=== PATIENT | female | born 1980 | race Caucasian/White ===

== ENCOUNTER 2016-06-15 15:44 | Emergency (ER) | payer MEDICAID ==
[~2016-06-15] VITALS: Ht 160 cm; Wt 63.6 kg
[~2016-06-15 15:44] MED LIST: ACET-66 PO
[2016-06-15 16:34] LABS: BASOPHILS % (AUTO) 0.3 % (0.0-2.0); EOSINOPHILS % (AUTO) 2.1 % (1.0-6.0); HEMATOCRIT 43.4 % (36-46); HEMOGLOBIN 14.3 g/dL (12.0-16.0); LYMPHOCYTES # (AUTO) 2.2 K/uL (1.0-4.8); LYMPHOCYTES % (AUTO) 23.6 % (22.0-44.0); MEAN CORPUSCULAR HEMOGLOBIN 30.3 pg (26.0-34.0); MEAN CORPUSCULAR HGB CONC 32.9 G/dL (31.0-37.0); MEAN CORPUSCULAR VOLUME 92 fL (80-100); MONOCYTES # (AUTO) 0.2 K/uL (0.1-1.0); MONOCYTES % (AUTO) 2.1 % (2.0-9.0); NEUTROPHILS # (AUTO) 6.8 K/uL (1.8-7.7); NEUTROPHILS % (AUTO) 71.9 % (40.0-70.0); PLATELET COUNT (AUTO) 305 K/uL (150-450); RED BLOOD CELL COUNT(AUTO) 4.72 MIL/uL (4.00-5.20); RED CELL DISTRIBUTION WIDTH 13.9 % (11.5-14.5); WHITE BLOOD COUNT (AUTO) 9.4 K/uL (4.5-11.0)
[2016-06-15 16:44] LABS: ANION GAP 11 mmol/L (8-16); CALCIUM, TOTAL 8.9 mg/dL (8.8-10.5); CARBON DIOXIDE 26 mmol/L (22-29); CHLORIDE 106 mmol/L (98-107); CREATININE 0.78 mg/dL (0.60-1.30); GLOMERULAR FILTR. RATE CALC > 60 mL/min (>60); POTASSIUM 3.8 mmol/L (3.5-5.1); SODIUM SERUM 143 mmol/L (136-145); UREA NITROGEN, BLOOD 16 mg/dL (7-18)
[2016-06-15 17:03] LABS: ALANINE AMINOTRANSFERASE 19 U/L (12-78); ASPARTATE AMINOTRANSFERASE 14 U/L (15-37); BILIRUBIN,TOTAL 0.3 mg/dL (0.1-1.0); TOTAL PROTEIN, SERUM 8.4 g/dL (6.4-8.2)
[2016-06-15] MEDS ORDERED: MORPHINE SULFATE 4 MG/ML SYRINGE IVP ONE (17:30)
[2016-06-15] MEDS ORDERED: SODIUM CHLORIDE 0.9% 1,000 ML IV ONE (17:30)
[2016-06-15] MEDS ORDERED: ONDANSETRON HCL 4 MG/2 ML VIAL IVP ONE (17:30)
[2016-06-15 20:41] LABS: APPEARANCE,URINE CLOUDY (CLEAR); GLUCOSE, URINE (UA) NEGATIVE (NEGATIVE); KETONES,URINE 40 mg/dL (NEGATIVE); LEUKOCYTE ESTERASE ,URINE SMALL (NEGATIVE); OCCULT BLOOD,URINE LARGE (NEGATIVE); PROTEIN,URINE SEE CONFIRM (NEGATIVE)
[2016-06-15 20:58] LABS: ADD UA MICROSCOPIC YES
[2016-06-15 21:05] LABS: SULFOSALICYLIC ACID,URINE 3+ (Negative)
[2016-06-15 21:08] LABS: RBC,URINE Full Field /HPF (0-2)
[2016-06-15 22:24] VITALS: BP 124/88
== END 2016-06-15 22:27 | disposition home or self-care (01) ==
LOC: EMS 15:47
DX: N39.0 Urinary tract infection, site not specified (principal); N94.6 Dysmenorrhea, unspecified; F15.90 Other stimulant use, unspecified, uncomplicated; J45.909 Unspecified asthma, uncomplicated
CPT/HCPCS: 36415; 74176; 76856; 80053; 80307; 81001; 81002; 83690; 84703; 85025; 87086; 96361; 96374; 96375; 99285; J2270; J2405; J7030

== ENCOUNTER 2020-08-13 00:40 | Emergency (ER) | payer MEDICAID ==
[~2020-08-13] VITALS: Ht 160 cm; Wt 75.0 kg
[2020-08-13] MEDS ORDERED: DEXAMETHASONE SOD PHOS 4 MG/ML 5 ML VIAL IM ONE (01:45)
[2020-08-13] MEDS ORDERED: ACETAMINOPHEN 500 MG TABLET PO ONE (01:45)
[2020-08-13] MEDS ORDERED: KETOROLAC TROMETHAMINE 30 MG/ML VIAL IM ONE (01:45)
[2020-08-13 02:15] LABS: COVID AG,FIA SOURCE NASOPHARYNGEAL
[2020-08-13 02:18] VITALS: BP 132/99
[2020-08-13 02:37] LABS: RAPID GROUP A STREP NEGATIVE (NEGATIVE)
[2020-08-13] MEDS ORDERED: PENICILLIN G BENZATHINE LA 1,200,000 UNITS/2 ML SYRINGE IM ONE (03:00)
[2020-08-13] MEDS ORDERED: ALBUTEROL SULFATE HFA 90 MCG/PUFF 8 GM INHALER IH ONE (03:15)
== END 2020-08-13 03:28 | disposition home or self-care (01) ==
LOC: EMS 00:47
DX: J02.9 Acute pharyngitis, unspecified (principal); Z20.822 Contact with and (suspected) exposure to COVID-19; J45.909 Unspecified asthma, uncomplicated; Z90.49 Acquired absence of other specified parts of digestive tract
CPT/HCPCS: 87426; 87430; 94640; 96372; 99284; J0561; J1100; J1885; J3535

== ENCOUNTER 2020-10-07 20:36 | Emergency (ER) | payer MEDICAID ==
[~2020-10-07] VITALS: Ht 160 cm; Wt 68.2 kg
[2020-10-07 22:51] VITALS: BP 140/80
== END 2020-10-07 22:55 | disposition home or self-care (01) ==
LOC: EMS 20:38
DX: S50.861A Insect bite (nonvenomous) of right forearm, initial encounter (principal); L03.114 Cellulitis of left upper limb; J45.909 Unspecified asthma, uncomplicated; Z79.899 Other long term (current) drug therapy; W57.XXXA Bitten or stung by nonvenomous insect and other nonvenomous arthropods, initial encounter; Y93.89 Activity, other specified; Y92.89 Other specified places as the place of occurrence of the external cause; Y99.8 Other external cause status
CPT/HCPCS: 99283; Z7502

== ENCOUNTER 2021-04-17 20:28 | Emergency (ER) | payer MEDICAID ==
[~2021-04-17] VITALS: Ht 160 cm; Wt 63.6 kg
[2021-04-17 20:33] VITALS: BP 142/93
[2021-04-18] MEDS ORDERED: CIPR250S4 PO (00:43)
[2021-04-18] MEDS ORDERED: NEOM10SO14 AD (00:43)
[2021-04-18] MEDS ORDERED: NEOMYCIN/POLYMYXIN B/HYDROCORT 10 ML OTIC SOLUTION AD ONE (00:45)
[2021-04-18] MEDS ORDERED: IBUPROFEN 600 MG TABLET PO ONE (00:45)
[2021-04-18] MEDS ORDERED: CIPROFLOXACIN HCL 250 MG TABLET PO ONE (00:45)
== END 2021-04-18 00:52 | disposition home or self-care (01) ==
LOC: EMS 20:30
DX: H60.91 Unspecified otitis externa, right ear (principal); J45.909 Unspecified asthma, uncomplicated; Z90.89 Acquired absence of other organs
CPT/HCPCS: 99284; Z7502; Z7610

== ENCOUNTER 2021-05-18 17:47 | Emergency (ER) | payer MEDICAID ==
[~2021-05-18] VITALS: Ht 157.5 cm; Wt 65.9 kg
[~2021-05-18 17:47] MED LIST changes: +CIPR250S4 PO; +NEOM10SO14 AD
[2021-05-18 17:53] VITALS: BP 148/72
[2021-05-18] MEDS ORDERED: CLOT15CR29 TP (18:11)
== END 2021-05-18 18:39 | disposition home or self-care (01) ==
LOC: EMS 17:50
DX: B35.3 Tinea pedis (principal); J45.909 Unspecified asthma, uncomplicated; Z90.89 Acquired absence of other organs
CPT/HCPCS: 99283

== ENCOUNTER 2021-06-04 17:14 | Emergency (ER) | payer MEDICAID ==
[~2021-06-04] VITALS: Ht 160 cm; Wt 69.5 kg
[~2021-06-04 17:14] MED LIST changes: +CLOT15CR29 TP
[2021-06-04] MEDS ORDERED: KETOROLAC TROMETHAMINE 30 MG/ML VIAL IVP ONE (19:15)
[2021-06-04] MEDS ORDERED: ACETAMINOPHEN 500 MG TABLET PO ONE (19:15)
[2021-06-04] MEDS ORDERED: VANCOMYCIN HCL 1 GM/D5% WATER 200 ML IV ONE (19:15)
[2021-06-04 19:44] LABS: BASOPHILS % (AUTO) 0.7 % (0.0-2.0); EOSINOPHILS % (AUTO) 2.3 % (1.0-6.0); HEMOGLOBIN 14.2 g/dL (12.0-16.0); LYMPHOCYTES # (AUTO) 1.8 K/uL (1.0-4.8); LYMPHOCYTES % (AUTO) 20.2 % (22.0-44.0); MEAN CORPUSCULAR HEMOGLOBIN 31.4 pg (26.0-34.0); MEAN CORPUSCULAR HGB CONC 33.9 G/dL (31.0-37.0); MEAN CORPUSCULAR VOLUME 93 fL (80-100); MONOCYTES # (AUTO) 0.3 K/uL (0.1-1.0); MONOCYTES % (AUTO) 3.7 % (2.0-9.0); NEUTROPHILS # (AUTO) 6.4 K/uL (1.8-7.7); NEUTROPHILS % (AUTO) 73.1 % (40.0-70.0); PLATELET COUNT (AUTO) 306 K/uL (150-450); RED BLOOD CELL COUNT(AUTO) 4.53 MIL/uL (4.00-5.20); RED CELL DISTRIBUTION WIDTH 13.1 % (11.5-14.5)
[2021-06-04] MEDS ORDERED: DOXYCYCLINE HYCLATE 100 MG TABLET PO ONE (19:45)
[2021-06-04] MEDS ORDERED: CefTRIAXone SODIUM 1 GM/VIAL IM ONE (19:45)
[2021-06-04] MEDS ORDERED: LIDOCAINE/PF 1% 2 ML VIAL IM ONE (19:45)
[2021-06-04 19:53] LABS: ANION GAP 14 mmol/L (8-16); CARBON DIOXIDE 22 mmol/L (22-29); CHLORIDE 103 mmol/L (98-107); CREATININE 0.63 mg/dL (0.60-1.30); GLOMERULAR FILTR. RATE CALC > 60 mL/min (>60); GLUCOSE,RANDOM 70 mg/dL (70-110); POTASSIUM 3.7 mmol/L (3.5-5.1); SODIUM SERUM 139 mmol/L (136-145); UREA NITROGEN, BLOOD 17 mg/dL (7-18)
[2021-06-04] MEDS ORDERED: KETOROLAC TROMETHAMINE 60 MG/2 ML VIAL IM ONE (20:00)
[2021-06-04 20:02] LABS: LACTIC ACID 1.5 mmol/L (0.4-2.0)
[2021-06-04 20:09] LABS: ALANINE AMINOTRANSFERASE 21 U/L (12-78); ALBUMIN 3.9 g/dL (3.4-5.0); ALKALINE PHOSPHATASE 67 U/L (46-116); ASPARTATE AMINOTRANSFERASE 14 U/L (15-37); BILIRUBIN,TOTAL 0.2 mg/dL (0.1-1.0); TOTAL PROTEIN, SERUM 8.7 g/dL (6.4-8.2)
[2021-06-04] MEDS ORDERED: BACI28OI28 TP (20:37)
[2021-06-04] MEDS ORDERED: DOXY-354 PO (20:37)
[2021-06-04] MEDS ORDERED: CEPH500C3 PO (20:37)
[2021-06-04] MEDS ORDERED: IBUP-1554 PO (20:37)
[2021-06-04 20:53] VITALS: BP 129/76
== END 2021-06-04 21:44 | disposition home or self-care (01) ==
LOC: EMS 17:14
DX: L03.115 Cellulitis of right lower limb (principal); Z79.899 Other long term (current) drug therapy
CPT/HCPCS: 36415; 80053; 83605; 84703; 85025; 87070; 87205; 96372; 99284; J0696; J1885; J3490; J3370

== ENCOUNTER 2022-06-15 21:54 | Emergency (ER) | payer MEDICAID ==
[~2022-06-15] VITALS: Ht 160 cm; Wt 75.0 kg
[~2022-06-15 21:54] MED LIST changes: +BACI28OI28 TP; +CEPH-558 PO; +CIPR-278 PO; -CIPR250S4 PO; +DOXY-354 PO; +IBUP-1554 PO
[2022-06-15 23:30] VITALS: BP 141/78
[2022-06-15] MEDS ORDERED: ALBUTEROL SULFATE HFA 90 MCG/PUFF 8 GM INHALER IH ONE (23:45)
== END 2022-06-16 01:06 | disposition home or self-care (01) ==
LOC: EMS 21:56
DX: Z76.0 Encounter for issue of repeat prescription (principal); Z90.49 Acquired absence of other specified parts of digestive tract; Z98.890 Other specified postprocedural states
CPT/HCPCS: 99283; 94640; J3535

== ENCOUNTER 2022-07-10 00:19 | Emergency (ER) | payer MEDICAID ==
[~2022-07-10] VITALS: Ht 160 cm; Wt 75.0 kg
[2022-07-10] MEDS ORDERED: SODIUM CHLORIDE 0.9% 1,000 ML IV ONE (00:45)
[2022-07-10] MEDS ORDERED: KETOROLAC TROMETHAMINE 30 MG/ML VIAL IVP ONE (00:45)
[2022-07-10] MEDS ORDERED: MORPHINE SULFATE 2 MG/ML SYRINGE IVP ONE ×2 (00:45→04:30)
[2022-07-10] MEDS ORDERED: ONDANSETRON HCL 4 MG/2 ML VIAL IVP ONE (00:45)
[2022-07-10 01:13] LABS: BASOPHILS % (AUTO) 1.3 % (0.0-2.0); EOSINOPHILS % (AUTO) 2.8 % (1.0-6.0); HEMOGLOBIN 13.8 g/dL (12.0-16.0); LYMPHOCYTES # (AUTO) 3.8 K/uL (1.0-4.8); LYMPHOCYTES % (AUTO) 39.8 % (22.0-44.0); MEAN CORPUSCULAR HEMOGLOBIN 31.6 pg (26.0-34.0); MEAN CORPUSCULAR HGB CONC 33.7 G/dL (31.0-37.0); MEAN CORPUSCULAR VOLUME 94 fL (80-100); MONOCYTES # (AUTO) 0.6 K/uL (0.1-1.0); MONOCYTES % (AUTO) 6.8 % (2.0-9.0); NEUTROPHILS # (AUTO) 4.7 K/uL (1.8-7.7); NEUTROPHILS % (AUTO) 49.3 % (40.0-70.0); PLATELET COUNT (AUTO) 257 K/uL (150-450); RED BLOOD CELL COUNT(AUTO) 4.37 MIL/uL (4.00-5.20)
[2022-07-10 01:15] LABS: APPEARANCE,URINE CLEAR (CLEAR); BILIRUBIN,URINE NEGATIVE (NEGATIVE); GLUCOSE, URINE (UA) NEGATIVE (NEGATIVE); KETONES,URINE NEGATIVE (NEGATIVE); LEUKOCYTE ESTERASE ,URINE NEGATIVE (NEGATIVE); NITRATE,URINE NEGATIVE (NEGATIVE); OCCULT BLOOD,URINE NEGATIVE (NEGATIVE); PH,URINE 7.5 (5.0-8.0); PROTEIN,URINE NEGATIVE (NEGATIVE); SPECIFIC GRAVITIY, URINE 1.013 (1.003-1.030); UROBILINOGEN,URINE <=1.0 mg/dL (<=1.0)
[2022-07-10 01:24] LABS: ANION GAP 7 mmol/L (8-16); CALCIUM, TOTAL 9.6 mg/dL (8.8-10.5); CARBON DIOXIDE 28 mmol/L (22-29); CHLORIDE 104 mmol/L (98-107); CREATININE 0.69 mg/dL (0.60-1.30); GLOMERULAR FILTR. RATE CALC > 60 mL/min (>60); GLUCOSE,RANDOM 106 mg/dL (70-110); POTASSIUM 3.6 mmol/L (3.5-5.1); SODIUM SERUM 139 mmol/L (136-145); UREA NITROGEN, BLOOD 14 mg/dL (7-18)
[2022-07-10 01:36] LABS: ALANINE AMINOTRANSFERASE 22 U/L (12-78); ALBUMIN 3.9 g/dL (3.4-5.0); ALKALINE PHOSPHATASE 49 U/L (46-116); ASPARTATE AMINOTRANSFERASE 12 U/L (15-37); BILIRUBIN,TOTAL 0.2 mg/dL (0.1-1.0); HCG,QUANTITATIVE < 1 mIU/mL (0-6); LIPASE 308 U/L (73-393); TOTAL PROTEIN, SERUM 7.6 g/dL (6.4-8.2)
[2022-07-10] MEDS ORDERED: KETOROLAC TROMETHAMINE 30 MG/ML VIAL IM ONE (03:00)
[2022-07-10] MEDS ORDERED: ONDANSETRON HCL 4 MG TABLET PO ONE (03:00)
[2022-07-10] MEDS ORDERED: METOCLOPRAMIDE HCL 5 MG/ML 2 ML VIAL IVP ONE (04:30)
[2022-07-10] MEDS ORDERED: DiphenhydrAMINE HCL 50 MG/ML VIAL IVP ONE (04:30)
[2022-07-10 05:28] LABS: AMPHET/METH SCREEN,URINE NEGATIVE (NEGATIVE); BARBITURATE SCREEN, URINE NEGATIVE (NEGATIVE); BENZODIAZEPINES SCREEN,URINE NEGATIVE (NEGATIVE); CANNABINOID SCREEN,URINE NEGATIVE (NEGATIVE); COCAINE SCREEN,URINE NEGATIVE (NEGATIVE); METHADONE SCREEN, URINE NEGATIVE (NEGATIVE); OPIATE SCREEN,URINE NEGATIVE (NEGATIVE); PHENCYCLIDINE SCREEN,URINE NEGATIVE (NEGATIVE)
[2022-07-10] MEDS ORDERED: IOHEXOL 350 MG/ML 100 ML VIAL ONE (07:18)
[2022-07-10] MEDS ORDERED: SODIUM CHLORIDE 0.9% 100 ML ONE (07:18)
[2022-07-10] MEDS ORDERED: HYDROmorphone HCL 2 MG/ML SYRINGE IVP ONE (08:15)
[2022-07-10] MEDS ORDERED: GADOTERATE MEGLUMINE 10 MMOL/20 ML VIAL IVP ONE (09:00)
[2022-07-10] MEDS ORDERED: POLY238P PO (13:51)
[2022-07-10] MEDS ORDERED: ACET-2080 PO (13:51)
[2022-07-10 14:12] VITALS: BP 114/80
== END 2022-07-10 15:03 | disposition home or self-care (01) ==
LOC: EMS 00:21
DX: R19.09 Other intra-abdominal and pelvic swelling, mass and lump (principal); Z90.49 Acquired absence of other specified parts of digestive tract; Z98.890 Other specified postprocedural states
CPT/HCPCS: 72197; 99285; 74177; 96374; 96375; 96361; 80053; 81003; 83690; 84702; 85025; 36415; 74183; 76817; 96376; 80307 ×2; J1200; A9575; J1170; J1885; J2765; J2270; Q0162; Q9967; J7030; J7050

== ENCOUNTER 2023-03-12 00:56 | Emergency (ER) | payer MEDICAID ==
[~2023-03-12] VITALS: Ht 160 cm; Wt 63.6 kg
[~2023-03-12 00:56] MED LIST changes: +ACET-2080 PO; +POLY238P PO
[2023-03-12 01:02] VITALS: TEMP 98.8
[2023-03-12] MEDS ORDERED: KETOROLAC TROMETHAMINE 30 MG/ML VIAL IM ONE (02:15)
[2023-03-12] MEDS ORDERED: HYDROCODONE/ACETAMINOPHEN 5-325 MG TABLET PO ONE (02:15)
[2023-03-12] MEDS ORDERED: AMOX1TAB16 PO (02:20)
[2023-03-12] MEDS ORDERED: TRAM-559 PO (02:21)
[2023-03-12 02:30] VITALS: BP 154/98; PULSE 78; RESP 19
[2023-03-12] MEDS ORDERED: AMOX TR/POT CLAV 875 MG/125 MG TABLET PO ONE (02:30)
== END 2023-03-12 02:55 | disposition home or self-care (01) ==
LOC: EMS 00:56
DX: K02.9 Dental caries, unspecified (principal); J45.909 Unspecified asthma, uncomplicated; F17.210 Nicotine dependence, cigarettes, uncomplicated; F12.90 Cannabis use, unspecified, uncomplicated; Z90.49 Acquired absence of other specified parts of digestive tract; Z98.890 Other specified postprocedural states
CPT/HCPCS: 99283; 96372; J1885

== ENCOUNTER 2023-05-11 11:49 | Emergency (ER) | payer MEDICAID ==
[~2023-05-11] VITALS: Ht 160 cm; Wt 63.6 kg
[~2023-05-11 11:49] MED LIST changes: +AMOX1TAB16 PO; +TRAM-559 PO
[2023-05-11 12:03] VITALS: TEMP 98.6
[2023-05-11 12:10] LABS: COVID AG,FIA SOURCE NASAL SWAB
[2023-05-11] MEDS ORDERED: ALBU18HF12 IH ×2 (12:11→14:55)
[2023-05-11 12:34] LABS: INFLUENZA TYPE A NEGATIVE FOR TYPE A (NEGATIVE); INFLUENZA TYPE B NEGATIVE FOR TYPE B (NEGATIVE); SARS-COV2 (COVID) ANTIGEN,FIA Negative (Negative)
[2023-05-11] MEDS ORDERED: BENZ-227 PO (14:55)
[2023-05-11] MEDS ORDERED: PRED-554 PO (14:55)
[2023-05-11 15:02] VITALS: BP 130/85; PULSE 90; RESP 16
== END 2023-05-11 15:03 | disposition home or self-care (01) ==
LOC: EMS 11:51
DX: J06.9 Acute upper respiratory infection, unspecified (principal); J45.909 Unspecified asthma, uncomplicated; F17.210 Nicotine dependence, cigarettes, uncomplicated; F12.90 Cannabis use, unspecified, uncomplicated; Z90.49 Acquired absence of other specified parts of digestive tract; Z98.890 Other specified postprocedural states; Z20.822 Contact with and (suspected) exposure to COVID-19
CPT/HCPCS: 87804; 99283

== ENCOUNTER 2023-07-27 00:20 | Emergency (ER) | payer MEDICAID ==
[~2023-07-27] VITALS: Ht 160 cm; Wt 65.0 kg
[~2023-07-27 00:20] MED LIST changes: -ACET-2080 PO; -ACET-66 PO; +ALBU18HF12 IH; -AMOX1TAB16 PO; -BACI28OI28 TP; +BENZ-227 PO; -CEPH-558 PO; -CIPR-278 PO; -CLOT15CR29 TP; -DOXY-354 PO; -IBUP-1554 PO; -NEOM10SO14 AD; -POLY238P PO; +PRED-554 PO; -TRAM-559 PO
[2023-07-27] MEDS ORDERED: AMOX500C2 PO (01:03)
[2023-07-27] MEDS ORDERED: IBUP-1493 PO (01:03)
[2023-07-27] MEDS: CefTRIAXone SODIUM 1 GM/VIAL IM ONE (01:10)
[2023-07-27] MEDS: KETOROLAC TROMETHAMINE 30 MG/ML VIAL IM ONE (01:10)
[2023-07-27] MEDS: LIDOCAINE/PF 1% 2 ML VIAL IM ONE (01:11)
[2023-07-27 01:14] VITALS: BP 148/69; PULSE 89; RESP 17; TEMP 98.6
== END 2023-07-27 01:21 | disposition home or self-care (01) ==
LOC: EMS 00:20
DX: H66.91 Otitis media, unspecified, right ear (principal); J45.909 Unspecified asthma, uncomplicated; F17.210 Nicotine dependence, cigarettes, uncomplicated; F12.90 Cannabis use, unspecified, uncomplicated; Z90.49 Acquired absence of other specified parts of digestive tract; Z98.890 Other specified postprocedural states
CPT/HCPCS: 99284; 96372; J0696; J1885; J3490

== ENCOUNTER 2023-09-24 10:52 | Inpatient (IN) | payer MEDICAID ==
[~2023-09-24] VITALS: Ht 160 cm; Wt 64.0 kg
[~2023-09-24 10:52] MED LIST changes: +AMOX500C2 PO; +IBUP-1493 PO
[2023-09-24] MEDS: SODIUM CHLORIDE 0.9% 1,000 ML IV ONE ×2 (12:21→15:07)
[2023-09-24] MEDS: ONDANSETRON HCL 4 MG/2 ML VIAL IVP ONE (12:21)
[2023-09-24 13:00] LABS: BASOPHILS % (AUTO) 0.1 % (0.0-2.0); EOSINOPHILS % (AUTO) 0.6 % (1.0-6.0); HEMATOCRIT 24.9 % (36-46); LYMPHOCYTES # (AUTO) 0.1 K/uL (1.0-4.8); LYMPHOCYTES % (AUTO) 4.5 % (22.0-44.0); MEAN CORPUSCULAR HEMOGLOBIN 30.7 pg (26.0-34.0); MEAN CORPUSCULAR HGB CONC 32.3 G/dL (31.0-37.0); MEAN CORPUSCULAR VOLUME 95 fL (80-100); MONOCYTES % (AUTO) 1.3 % (2.0-9.0); NEUTROPHILS # (AUTO) 2.5 K/uL (1.8-7.7); PLATELET COUNT (AUTO) 166 K/uL (150-450); RED BLOOD CELL COUNT(AUTO) 2.62 MIL/uL (4.00-5.20); RED CELL DISTRIBUTION WIDTH 13.5 % (11.5-14.5); WHITE BLOOD COUNT (AUTO) 2.6 K/uL (4.5-11.0)
[2023-09-24 13:01] LABS: NEUTROPHILS % (AUTO) 93.5 % (40.0-70.0)
[2023-09-24 13:06] LABS: ALCOHOL, BLOOD (SERUM) < 3 mg/dL (0-10)
[2023-09-24 13:07] LABS: B-TYPE NATRIURETIC PEPTIDE 27 pg/mL (0-100)
[2023-09-24 13:08] LABS: TROPONIN I-HIGH SENSITIVITY Less Than 4 ng/L (<51)
[2023-09-24 13:26] LABS: APPEARANCE,URINE CLEAR (CLEAR); BILIRUBIN,URINE NEGATIVE (NEGATIVE); COLOR,URINE YELLOW (YELLOW); GLUCOSE, URINE (UA) NEGATIVE (NEGATIVE); LEUKOCYTE ESTERASE ,URINE TRACE (NEGATIVE); NITRATE,URINE NEGATIVE (NEGATIVE); OCCULT BLOOD,URINE NEGATIVE (NEGATIVE); PH,URINE 6.5 (5.0-8.0); PH,URINE DRUG SCREEN 6.5 (5.0-8.0); PROTEIN,URINE TRACE mg/dL (NEGATIVE); SPECIFIC GRAVITIY, URINE 1.027 (1.003-1.030); UROBILINOGEN,URINE <=1.0 mg/dL (<=1.0)
[2023-09-24 13:33] LABS: ALCOHOL, URINE DRUG SCREEN NEGATIVE (NEGATIVE); AMPHET/METH SCREEN,URINE NEGATIVE (NEGATIVE); BARBITURATE SCREEN, URINE NEGATIVE (NEGATIVE); BENZODIAZEPINES SCREEN,URINE NEGATIVE (NEGATIVE); CANNABINOID SCREEN,URINE NEGATIVE (NEGATIVE); COCAINE SCREEN,URINE NEGATIVE (NEGATIVE); METHADONE SCREEN, URINE NEGATIVE (NEGATIVE); OPIATE SCREEN,URINE NEGATIVE (NEGATIVE); PHENCYCLIDINE SCREEN,URINE NEGATIVE (NEGATIVE)
[2023-09-24 13:35] LABS: INR 1.3 (0.9-1.1)
[2023-09-24 13:39] LABS: BACTERIA,URINE Moderate /HPF (None Seen); RBC,URINE None Seen /HPF (0-2); SQUAMOUS EPITHELIAL CELL,UR Few /LPF (None Seen)
[2023-09-24 13:42] LABS: SALICYLATE < 0.2 mg/dL (2.8-20.0)
[2023-09-24] MEDS ORDERED: ONDANSETRON HCL 4 MG/2 ML VIAL IVP PRN (14:30)
[2023-09-24] MEDS: CefTRIAXone 1 GM/DEXTROSE 50 ML IV ONE (15:06)
[2023-09-24] MEDS: PANTOPRAZOLE SODIUM 40 MG/VIAL IVP SCH (15:06)
[2023-09-24] MEDS: ACETAMINOPHEN 325 MG TABLET PO PRN (15:06)
[2023-09-24 16:25] LABS: ANION GAP 13 mmol/L (8-16); CALCIUM, TOTAL 8.9 mg/dL (8.8-10.5); CARBON DIOXIDE 22 mmol/L (22-29); CHLORIDE 106 mmol/L (98-107); GLOMERULAR FILTR. RATE CALC > 60 mL/min (>60); GLUCOSE,RANDOM 96 mg/dL (70-110); POTASSIUM 3.7 mmol/L (3.5-5.1); SODIUM SERUM 141 mmol/L (136-145); UREA NITROGEN, BLOOD 12 mg/dL (7-18)
[2023-09-24 16:49] LABS: ALANINE AMINOTRANSFERASE 26 U/L (12-78); ALBUMIN 3.6 g/dL (3.4-5.0); ALKALINE PHOSPHATASE 87 U/L (46-116); ASPARTATE AMINOTRANSFERASE 25 U/L (15-37); BILIRUBIN,TOTAL 0.3 mg/dL (0.1-1.0); CREATINE KINASE, TOTAL ONLY 145 U/L (26-192); PHOSPHORUS 1.8 mg/dL (2.5-4.9); TOTAL PROTEIN, SERUM 8.2 g/dL (6.4-8.2)
[2023-09-24 16:50] LABS: ACETAMINOPHEN < 2 mcg/mL (10-30)
[2023-09-24 18:36] VITALS: BP 112/77; PULSE 130; RESP 24; TEMP 97.7; O2SAT 97
[2023-09-24 20:55] VITALS: BP 109/74; PULSE 101; RESP 19; TEMP 97.6
[2023-09-24 23:22] LABS: C.DIFF GDH ANTIGEN, Stool Positive (Negative)
[2023-09-24 23:23] LABS: C.DIFF TOXINS A&B, Stool Positive (Negative)
[2023-09-25 04:04] VITALS: BP 152/72; PULSE 104; RESP 19; TEMP 98.1
[2023-09-25 07:47] VITALS: BP 111/74; PULSE 96; RESP 18; TEMP 97.4
[2023-09-25 11:45] VITALS: BP 124/82; PULSE 100; RESP 18; TEMP 97.5
[2023-09-25] MEDS: MULTIVITAMINS WITH MINERALS, THERAPEUTIC TABLET PO SCH (11:47)
[2023-09-25 13:10] LABS: BASOPHILS % (AUTO) 0.2 % (0.0-2.0); EOSINOPHILS % (AUTO) 1.4 % (1.0-6.0); HEMATOCRIT 47.4 % (36-46); LYMPHOCYTES # (AUTO) 1.5 K/uL (1.0-4.8); LYMPHOCYTES % (AUTO) 16.2 % (22.0-44.0); MEAN CORPUSCULAR HEMOGLOBIN 30.9 pg (26.0-34.0); MEAN CORPUSCULAR HGB CONC 32.8 G/dL (31.0-37.0); MEAN CORPUSCULAR VOLUME 94 fL (80-100); MONOCYTES # (AUTO) 0.7 K/uL (0.1-1.0); MONOCYTES % (AUTO) 7.4 % (2.0-9.0); NEUTROPHILS # (AUTO) 6.8 K/uL (1.8-7.7); NEUTROPHILS % (AUTO) 74.8 % (40.0-70.0); PLATELET COUNT (AUTO) 349 K/uL (150-450); RED BLOOD CELL COUNT(AUTO) 5.03 MIL/uL (4.00-5.20); RED CELL DISTRIBUTION WIDTH 13.6 % (11.5-14.5); WHITE BLOOD COUNT (AUTO) 9.1 K/uL (4.5-11.0)
[2023-09-25 13:11] LABS: HEMOGLOBIN 15.6 g/dL (12.0-16.0)
[2023-09-25] MEDS ORDERED: MULT-248 PO (13:47)
[2023-09-25 14:10] LABS: BASOPHILS % (AUTO) 0.3 % (0.0-2.0); EOSINOPHILS % (AUTO) 1.2 % (1.0-6.0); HEMATOCRIT 46.9 % (36-46); HEMOGLOBIN 15.3 g/dL (12.0-16.0); LYMPHOCYTES # (AUTO) 1.3 K/uL (1.0-4.8); LYMPHOCYTES % (AUTO) 14.9 % (22.0-44.0); MEAN CORPUSCULAR HEMOGLOBIN 30.7 pg (26.0-34.0); MEAN CORPUSCULAR HGB CONC 32.7 G/dL (31.0-37.0); MEAN CORPUSCULAR VOLUME 94 fL (80-100); MONOCYTES # (AUTO) 0.7 K/uL (0.1-1.0); MONOCYTES % (AUTO) 7.9 % (2.0-9.0); NEUTROPHILS # (AUTO) 6.7 K/uL (1.8-7.7); NEUTROPHILS % (AUTO) 75.7 % (40.0-70.0); PLATELET COUNT (AUTO) 349 K/uL (150-450); RED BLOOD CELL COUNT(AUTO) 4.99 MIL/uL (4.00-5.20); RED CELL DISTRIBUTION WIDTH 14.1 % (11.5-14.5); WHITE BLOOD COUNT (AUTO) 8.9 K/uL (4.5-11.0)
[2023-09-25 14:46] VITALS: BP 129/68; PULSE 94; RESP 18; TEMP 97.4
[2023-09-25] MEDS ORDERED: SODIUM CHLORIDE 0.9% 250 ML IV ONE (15:09)
[2023-09-25] MEDS: CefTRIAXone 1 GM/DEXTROSE 50 ML IV SCH (15:16)
[2023-09-25] MEDS: FERROUS SULFATE 325 MG EC TABLET PO SCH (17:14)
[2023-09-25 20:02] VITALS: BP 107/60; PULSE 95; RESP 18; TEMP 97.4
[2023-09-26] VITALS (7 sets, daily range): BP systolic 110–128; BP diastolic 49–90; PULSE 69–98; RESP 17–19; TEMP 97.8–98.2
[2023-09-26] MEDS: SODIUM CHLORIDE 0.9% 1,000 ML IV ONE (00:45)
[2023-09-26] MEDS: MetroNIDAZOLE 500 MG TABLET PO SCH (08:51)
[2023-09-26] MEDS: VANCOMYCIN HCL 125 MG/2.5 ML SOLUTION ORAL.SYG PO SCH (12:38)
[2023-09-27 04:53] VITALS: BP 118/71; PULSE 80; RESP 18; TEMP 97.7
[2023-09-27 08:01] VITALS: BP 117/61; PULSE 105; RESP 18; TEMP 98.3
[2023-09-27] MEDS ORDERED: VANC125C12 PO (08:15)
== END 2023-09-27 13:18 | disposition home or self-care (01) | DRG 816 ==
LOC: EMS 10:52 → EDH 14:19 → 6S 18:45 → 5N 20:25 → 4E 09-26 15:50 → 5N 09-26 16:03 → 4E 09-26 20:59
PROVIDERS: ADMIT Internal Medicine; ATTEND Internal Medicine
DX: T62.0X1A Toxic effect of ingested mushrooms, accidental (unintentional), initial encounter (principal); G92.9 Unspecified toxic encephalopathy; F29 Unspecified psychosis not due to a substance or known physiological condition; F20.0 Paranoid schizophrenia; J45.909 Unspecified asthma, uncomplicated; D64.9 Anemia, unspecified; N39.0 Urinary tract infection, site not specified; Y92.89 Other specified places as the place of occurrence of the external cause; Z90.49 Acquired absence of other specified parts of digestive tract; Z98.891 History of uterine scar from previous surgery
CPT/HCPCS: 71045; 80053; 80307; 81001; 82271; 82550; 83690; 83735; 83880; 84100; 84484; 84703; 85025; 85610; 85730; 87086; 87186; 87324; 87449; 93005; 99285; C9113; G0378; G0480; G0481; J0696; J2405; J7030; J7050; 36415-L1; 36415-TC

== ENCOUNTER 2024-06-29 08:00 | Emergency (ER) | payer MEDICAID ==
[~2024-06-29] VITALS: Ht 154.9 cm; Wt 65.9 kg
[~2024-06-29 08:00] MED LIST changes: -ALBU18HF12 IH; -AMOX500C2 PO; -BENZ-227 PO; -IBUP-1493 PO; +MULT-248 PO; -PRED-554 PO; +VANC125C12 PO
[2024-06-29] MEDS ORDERED: [UNRECOGNIZED DRUG - CODE] PO (08:06)
[2024-06-29 08:08] VITALS: TEMP 98
[2024-06-29 08:20] LABS: COVID AG,FIA SOURCE NASAL SWAB
[2024-06-29 09:08] LABS: SARS-COV2 (COVID) ANTIGEN,FIA Negative (Negative)
[2024-06-29 09:09] LABS: INFLUENZA TYPE A NEGATIVE FOR TYPE A (NEGATIVE); INFLUENZA TYPE B NEGATIVE FOR TYPE B (NEGATIVE)
[2024-06-29] MEDS: METOCLOPRAMIDE HCL 5 MG/ML 2 ML VIAL IM ONE (10:26)
[2024-06-29] MEDS: DEXAMETHASONE SOD PHOS 4 MG/ML VIAL IM ONE (10:26)
[2024-06-29] MEDS: KETOROLAC TROMETHAMINE 30 MG/ML VIAL IM ONE (10:26)
[2024-06-29 12:00] VITALS: BP 126/74; PULSE 72; RESP 16; O2SAT 98
== END 2024-06-29 12:41 | disposition home or self-care (01) ==
LOC: EMS 08:02
DX: J02.8 Acute pharyngitis due to other specified organisms (principal); B97.89 Other viral agents as the cause of diseases classified elsewhere; J45.909 Unspecified asthma, uncomplicated; F12.90 Cannabis use, unspecified, uncomplicated; F17.210 Nicotine dependence, cigarettes, uncomplicated; Z87.440 Personal history of urinary (tract) infections; Z20.822 Contact with and (suspected) exposure to COVID-19
CPT/HCPCS: 99284; 87426; 87804; 96372; J1885; J1100; J2765